=== PATIENT | male | born 1995 | race Caucasian/White ===

== ENCOUNTER 2017-08-01 15:45 | Emergency (ER) | payer OTHER ==
[2017-08-01] MEDS ORDERED: Ketorolac INJ* 30 MG/ML 1 ML VIAL IV PUSH ONE (17:03)
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
[2017-08-01] MEDS ORDERED: Ketorolac INJ* 60 MG/2 ML VIAL ONE (17:11)
[2017-08-01] MEDS ORDERED: Ketorolac INJ* 60 MG/2 ML VIAL IM ONE (17:13)
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
[2017-08-01 17:29] VITALS: BP 118/78
== END 2017-08-01 17:28 | disposition home or self-care (01) ==
LOC: ED 15:45
DX: M54.6 Pain in thoracic spine (principal); F17.200 Nicotine dependence, unspecified, uncomplicated
CPT/HCPCS: 72070; 72100; 96372; 99282; J1885

== ENCOUNTER 2017-12-04 09:20 | Emergency (ER) | payer OTHER ==
[2017-12-04] MEDS ORDERED: NS 0.9% 1000 ML* 1,000 ML IV ONE (09:37)
[2017-12-04] MEDS ORDERED: Ketorolac INJ* 30 MG/ML 1 ML VIAL IV PUSH ONE (09:37)
[2017-12-04] MEDS ORDERED: Ondansetron INJ* 2 MG/ML VIAL IV ONE (09:37)
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
[2017-12-04 09:54] LABS: ABS Basophils 0 10^3/ul (0-0.2); ABS Eosinophils 0.1 10^3/ul (0-0.6); ABS Lymphocytes 1.2 10^3/ul (1.0-4.8); ABS Monocytes 0.6 10^3/ul (0-0.8); ABS Neutrophils 5.5 10^3/ul (1.5-7.7); ABS Nucleated RBC 0 10^3/ul; Eosinophil % 1.3 % (0-6); Hematocrit 47 % (42-52); Hemoglobin 16.2 g/dl (14.0-18.0); Lymphocyte % 16.4 % (25-47); Mean Corpuscular HGB Conc 35 g/dl (31-36); Mean Corpuscular Hemoglobin 32 pg (27-31); Mean Corpuscular Volume 91 fL (80-94); Mean Platelet Volume 7.9 um3 (7.4-10.4); Nucleated Red Blood Cells % 0.2; Platelet Count 236 10^3/ul (150-450); Red Blood Count 5.12 10^6/ul (4.00-5.40); Red Cell Distribution Width 13 % (10.5-15); White Blood Count 7.5 10^3/ul (3.5-10.8)
[2017-12-04 10:14] LABS: EGFR Non-African American 97.1 (>60)
--- NOTE | 2017-12-04 10:32 | RAD ---
INDICATION: Viral symptoms including vomiting, cough, chest pain, rash. 3 days duration. Tobacco use. COMPARISON: September 09, 2012 CT. TECHNIQUE: Dual energy PA and routine lateral views of the chest were obtained. REPORT: Clear lungs and pleural spaces. Negative for pneumothorax. The heart, pulmonary vasculature, and mediastinal contours are unremarkable. Unremarkable osseous structures and soft tissue contours. IMPRESSION: #. No evidence for pneumonia. Negative exam.
[2017-12-04 11:19] VITALS: BP 125/72
[2017-12-06 15:06] LABS: HSV 1 PCR Negative
== END 2017-12-04 11:17 | disposition home or self-care (01) ==
LOC: ED 09:20
DX: B34.9 Viral infection, unspecified (principal); B00.9 Herpesviral infection, unspecified; L30.9 Dermatitis, unspecified; M54.9 Dorsalgia, unspecified; R10.84 Generalized abdominal pain; R11.2 Nausea with vomiting, unspecified; R07.9 Chest pain, unspecified; R21 Rash and other nonspecific skin eruption; F17.210 Nicotine dependence, cigarettes, uncomplicated; R53.83 Other fatigue
CPT/HCPCS: 36415; 71046; 80048; 85025; 86140; 86703; 87529; 87798; 93005; 99283; J1885; J2405